=== PATIENT | female | born 1960 | race Caucasian/White ===

== ENCOUNTER → 2016-12-08 | Outpatient (REF) | payer OTHER ==
[2016-12-08 12:52] LABS: ALBUMIN/GLOBULIN RATIO 1.08 (1.00-1.93); ALKALINE PHOSPHATASE 67 U/L (45-117); ALT/SGPT 44 U/L (12-78); ANION GAP 15 MEQ/L (8-16); AST/SGOT 19 U/L (15-37); BLOOD UREA NITROGEN 12 MG/DL (7-18); CALCIUM LEVEL 9.2 MG/DL (8.5-10.1); CARBON DIOXIDE LEVEL 32 MEQ/L (21-32); CHLORIDE LEVEL 93 MEQ/L (98-107); CREATININE FOR GFR 0.91 MG/DL (0.55-1.02); GLOMERULAR FILTRATION RATE > 60.0 (>51); GLUCOSE, FASTING 167 MG/DL (70-105); SODIUM LEVEL 140 MEQ/L (136-145); TOTAL PROTEIN 7.7 GM/DL (6.4-8.2)
== END ==
LOC: M SFHCADAM 08:12
PROVIDERS: ATTEND Physician Assistant
DX: E11.65 Type 2 diabetes mellitus with hyperglycemia (principal)

== ENCOUNTER → 2016-12-22 | Outpatient (REF) | payer OTHER | LOC: M SFHCWAGY 15:56 | PROVIDERS: ATTEND Nurse Practitioner Family | DX: Z11.3 Encounter for screening for infections with a predominantly sexual mode of transmission (principal) ==

== ENCOUNTER → 2016-12-27 | Outpatient (CLI) | payer OTHER ==
--- NOTE | 2016-12-27 11:37 | REP ---
Clinical: Postmenopausal bleeding . Technique: Transabdominal pelvic ultrasound followed by transvaginal examination for better evaluation of the endometrium and adnexa. Findings: Bladder is unremarkable and measures 10.4 x 5.5 x 8.5 cm . Heterogeneous anteverted uterus measures 11.1 x 4.8 x 6.2 cm. The endometrial complex is heterogeneous and thickened measuring up to 16.4 mm thickness. No discrete uterine or endometrial abnormalities are appreciated. Bilateral ovaries are normal in appearance. Right ovary measures 2.7 x 1.7 x 1.4 cm. Left ovary measures 2.8 x 2.5 x 2.2 cm. No pelvic fluid or adnexal mass lesion. . Impression: 1. Heterogeneous thickened endometrium up to 16.4 mm.
== END ==
LOC: M WHC 09:52
PROVIDERS: ATTEND Nurse Practitioner Family
DX: N95.0 Postmenopausal bleeding (principal)

== ENCOUNTER → 2017-01-16 | Outpatient (REF) | payer OTHER | LOC: M SFHCWAGY 11:28 | PROVIDERS: ATTEND Nurse Practitioner Family | DX: N95.0 Postmenopausal bleeding (principal) ==

== ENCOUNTER → 2017-01-16 | Outpatient (CLI) | payer OTHER ==
--- NOTE | 2017-01-16 12:42 | REPMRS ---
Patient History The patient states she had a clinical breast exam in 12/2016. Patient is postmenopausal. No known family history of cancer. Digital Woman Screen Mammo: January 16, 2017 - Exam #: [id number] Bilateral CC and MLO view(s) were taken. Technologist: Carolina Padron Technologist Prior study comparison: January 14, 2016, digital woman screen mammo performed at [facility]. November 20, 2014, digital woman screen mammo performed at [facility]. April 20, 2009, bilateral bilat screen digital mammo performed at [facility]. FINDINGS: There are scattered fibroglandular densities. There has been no change in the appearance of the mammogram from the prior studies. There is a mild amount of scattered fibroglandular density which is fairly symmetric. There is no interval development of dominant mass, architectural distortion, or clustered microcalcification suggestive of malignancy. ASSESSMENT: BI-RADS/ACR category 1 mammogram. Negative. Recommendation Routine screening mammogram in 1 year (for women over age 40). This mammogram was interpreted with the aid of an FDA-approved computer-aided dectection system. Electronically Signed By: Emery Vera MD 01/16/17 [id number]
== END ==
LOC: M WHC 09:58
PROVIDERS: ATTEND Physician Assistant
DX: Z12.31 Encounter for screening mammogram for malignant neoplasm of breast (principal)

== ENCOUNTER → 2017-06-16 | Outpatient (REF) | payer OTHER ==
[2017-06-16 13:15] LABS: MEAN CORPUSCULAR HEMOGLOBIN 34.8 pg (27.0-33.0); MEAN CORPUSCULAR HGB CONC 33.4 g/dl (32.0-36.5); MEAN CORPUSCULAR VOLUME 104.2 fl (80.0-96.0); RED CELL DISTRIBUTION WIDTH 13.8 % (11.5-14.5); WHITE BLOOD COUNT 6.6 K/mm3 (4.0-10.0)
[2017-06-16 13:32] LABS: ALBUMIN 3.9 GM/DL (3.2-5.2); ALBUMIN/GLOBULIN RATIO 1.15 (1.00-1.93); ALKALINE PHOSPHATASE 59 U/L (45-117); ALT/SGPT 39 U/L (12-78); ANION GAP 11 MEQ/L (8-16); AST/SGOT 11 U/L (15-37); BILIRUBIN,TOTAL 0.7 MG/DL (0.2-1.0); BLOOD UREA NITROGEN 15 MG/DL (7-18); CALCIUM LEVEL 9.2 MG/DL (8.5-10.1); CARBON DIOXIDE LEVEL 33 MEQ/L (21-32); CHLORIDE LEVEL 97 MEQ/L (98-107); CHOLESTEROL LEVEL 116 MG/DL (<200); CREATININE FOR GFR 0.97 MG/DL (0.55-1.02); FREE T4 1.05 NG/DL (0.76-1.46); GLOMERULAR FILTRATION RATE > 60.0 (>51); GLUCOSE, FASTING 152 MG/DL (70-105); POTASSIUM SERUM 4.5 MEQ/L (3.5-5.1); SODIUM LEVEL 141 MEQ/L (136-145); TOTAL PROTEIN 7.3 GM/DL (6.4-8.2); TRIGLYCERIDES LEVEL 138 MG/DL (<150)
[2017-06-16 14:24] LABS: VITAMIN B12 LEVEL 297 PG/ML
[2017-06-16 14:34] LABS: FOLATE 11.3 NG/ML
== END ==
LOC: M SFHCADAM 09:32
PROVIDERS: ATTEND Physician Assistant
DX: N93.9 Abnormal uterine and vaginal bleeding, unspecified (principal); I11.9 Hypertensive heart disease without heart failure; E11.65 Type 2 diabetes mellitus with hyperglycemia; D75.89 Other specified diseases of blood and blood-forming organs

== ENCOUNTER → 2017-07-12 | Outpatient (REF) | payer OTHER | LOC: M SFHCWAGY 11:59 | PROVIDERS: ATTEND Nurse Practitioner Family | DX: N85.00 Endometrial hyperplasia, unspecified (principal) ==

== ENCOUNTER → 2017-07-19 | Outpatient (CLI) | payer OTHER ==
--- NOTE | 2017-07-20 08:12 | REP ---
Clinical: Postmenopausal pelvic pain and thickened endometrial complex. Comparison: 12/27/2016. Technique: Transabdominal pelvic ultrasound. Findings: Heterogeneous uterus measures 10.1 x 4.6 x 6.5 cm. The endometrial complex measures 7.1 mm thickness. No discrete uterine/endometrial abnormality is identified. The bilateral ovaries are normal in appearance. Right ovary measures 2.7 x 1.0 x 2.0 cm. Left ovary measures 2.8 x 2.7 x 1.9 cm. Bladder is unremarkable and measures 6.1 x 4.0 x 6.2 cm. No pelvic fluid or adnexal mass lesion. Impression: Heterogeneous uterus and endometrial complex without discrete abnormality identified.
== END ==
LOC: M WHC 08:00
PROVIDERS: ATTEND Nurse Practitioner Family
DX: N85.00 Endometrial hyperplasia, unspecified (principal)

== ENCOUNTER → 2017-09-06 | Outpatient (REF) | payer OTHER | LOC: M SFHCADAM 08:13 | PROVIDERS: ATTEND Physician Assistant | DX: E11.65 Type 2 diabetes mellitus with hyperglycemia (principal) ==

== ENCOUNTER → 2017-12-14 | Outpatient (REF) | payer OTHER ==
[2017-12-19 10:19] LABS: HPV HYBRID CAPTURE II Negative (Negative)
== END ==
LOC: M SFHCWAGY 11:59
DX: Z12.4 Encounter for screening for malignant neoplasm of cervix (principal)

== ENCOUNTER → 2017-12-22 | Outpatient (REF) | payer OTHER ==
[2017-12-22 13:20] LABS: ALBUMIN/GLOBULIN RATIO 1.05 (1.00-1.93); ALKALINE PHOSPHATASE 76 U/L (45-117); ALT/SGPT 31 U/L (12-78); ANION GAP 8 MEQ/L (8-16); AST/SGOT 20 U/L (7-37); BILIRUBIN,TOTAL 0.7 MG/DL (0.2-1.0); BLOOD UREA NITROGEN 11 MG/DL (7-18); CALCIUM LEVEL 9.2 MG/DL (8.5-10.1); CARBON DIOXIDE LEVEL 33 MEQ/L (21-32); CHLORIDE LEVEL 97 MEQ/L (98-107); CREATININE FOR GFR 0.99 MG/DL (0.55-1.30); GLOMERULAR FILTRATION RATE > 60.0 (>51); GLUCOSE, FASTING 113 MG/DL (70-100); SODIUM LEVEL 138 MEQ/L (136-145); TOTAL PROTEIN 7.8 GM/DL (6.4-8.2)
[2017-12-22 14:03] LABS: ESTIMATED AVERAGE GLUCOSE 157 MG/DL (60-110); HEMOGLOBIN A1c 7.1 %
== END ==
LOC: M SFHCADAM 10:30
DX: E11.9 Type 2 diabetes mellitus without complications (principal)

== ENCOUNTER → 2018-03-02 | Outpatient (REF) | payer OTHER ==
[2018-03-02 13:10] LABS: ESTIMATED AVERAGE GLUCOSE 157 MG/DL (60-110); HEMOGLOBIN A1c 7.1 %
[2018-03-02 13:14] LABS: ALBUMIN 3.9 GM/DL (3.2-5.2); ALBUMIN/GLOBULIN RATIO 1.05 (1.00-1.93); ALKALINE PHOSPHATASE 83 U/L (45-117); ALT/SGPT 38 U/L (12-78); ANION GAP 8 MEQ/L (8-16); AST/SGOT 8 U/L (7-37); BILIRUBIN,TOTAL 0.7 MG/DL (0.2-1.0); BLOOD UREA NITROGEN 14 MG/DL (7-18); CALCIUM LEVEL 8.9 MG/DL (8.5-10.1); CARBON DIOXIDE LEVEL 34 MEQ/L (21-32); CHLORIDE LEVEL 99 MEQ/L (98-107); CREATININE FOR GFR 0.95 MG/DL (0.55-1.30); GLOMERULAR FILTRATION RATE > 60.0 (>51); GLUCOSE, FASTING 120 MG/DL (70-100); POTASSIUM SERUM 4.4 MEQ/L (3.5-5.1); SODIUM LEVEL 141 MEQ/L (136-145); TOTAL PROTEIN 7.6 GM/DL (6.4-8.2)
== END ==
LOC: M SFHCADAM 08:15
DX: R60.0 Localized edema (principal); E11.9 Type 2 diabetes mellitus without complications
CPT/HCPCS: 80053

== ENCOUNTER → 2018-07-12 | Outpatient (REF) | payer OTHER ==
[2018-07-12 20:43] LABS: ESTIMATED AVERAGE GLUCOSE 180 MG/DL (60-110); HEMOGLOBIN A1c 7.9 %
[2018-07-12 20:44] LABS: ALBUMIN 4.1 GM/DL (3.2-5.2); ALBUMIN/GLOBULIN RATIO 1.14 (1.00-1.93); ALKALINE PHOSPHATASE 87 U/L (45-117); ALT/SGPT 32 U/L (12-78); ANION GAP 10 MEQ/L (8-16); AST/SGOT 9 U/L (7-37); BILIRUBIN,TOTAL 0.7 MG/DL (0.2-1.0); BLOOD UREA NITROGEN 16 MG/DL (7-18); CALCIUM LEVEL 9.4 MG/DL (8.5-10.1); CARBON DIOXIDE LEVEL 35 MEQ/L (21-32); CHLORIDE LEVEL 94 MEQ/L (98-107); FREE T4 1.11 NG/DL (0.76-1.46); GLOMERULAR FILTRATION RATE 54.3 (>51); GLUCOSE, FASTING 164 MG/DL (70-100); POTASSIUM SERUM 3.8 MEQ/L (3.5-5.1); SODIUM LEVEL 139 MEQ/L (136-145); TOTAL PROTEIN 7.7 GM/DL (6.4-8.2)
== END ==
LOC: M SFHCADAM 16:08
DX: R60.0 Localized edema (principal); E11.9 Type 2 diabetes mellitus without complications; E78.5 Hyperlipidemia, unspecified

== ENCOUNTER → 2018-09-03 | Outpatient (REF) | payer OTHER | LOC: M SFHCADAM 07:51 | DX: E11.9 Type 2 diabetes mellitus without complications (principal); E78.5 Hyperlipidemia, unspecified; Z53.8 Procedure and treatment not carried out for other reasons ==

== ENCOUNTER → 2018-09-11 | Outpatient (REF) | payer OTHER ==
[2018-09-11 20:43] LABS: MAGNESIUM LEVEL 1.8 MG/DL (1.8-2.4)
[2018-09-11 20:47] LABS: ANION GAP 7 MEQ/L (8-16); BLOOD UREA NITROGEN 14 MG/DL (7-18); CALCIUM LEVEL 8.9 MG/DL (8.5-10.1); CARBON DIOXIDE LEVEL 35 MEQ/L (21-32); CHLORIDE LEVEL 94 MEQ/L (98-107); CREATININE FOR GFR 1.12 MG/DL (0.55-1.30); GLOMERULAR FILTRATION RATE 53.2 (>51); GLUCOSE, FASTING 209 MG/DL (70-100); POTASSIUM SERUM 3.6 MEQ/L (3.5-5.1); SODIUM LEVEL 136 MEQ/L (136-145)
[2018-09-11 22:32] LABS: MAU/CREAT RATIO 98.6 MCG/MG (0.0-30.0)
== END ==
LOC: M SFHCADAM 15:38
DX: R60.0 Localized edema (principal)

== ENCOUNTER → 2018-12-11 | Outpatient (REF) | payer OTHER ==
[2018-12-11 13:07] LABS: ALBUMIN 3.9 GM/DL (3.2-5.2); BILIRUBIN,TOTAL 0.9 MG/DL (0.2-1.0); CALCIUM LEVEL 9.3 MG/DL (8.5-10.1); CREATININE FOR GFR 1.4 MG/DL (0.55-1.30); GLOMERULAR FILTRATION RATE 41.1 (>51); POTASSIUM SERUM 3.2 MEQ/L (3.5-5.1); TOTAL PROTEIN 7.7 GM/DL (6.4-8.2)
[2018-12-11 14:03] LABS: CREATININE, URINE 26.3 MG/DL; MALB URINE SIEMENS 12.4 MG/L; MAU/CREAT RATIO 47.1 MCG/MG (0.0-30.0)
[2018-12-11 14:09] LABS: HEMOGLOBIN A1c 9.9 %
== END ==
LOC: M SFHCADAM 11:19
PROVIDERS: ATTEND Physician Assistant
DX: R60.0 Localized edema (principal); E78.5 Hyperlipidemia, unspecified; E11.65 Type 2 diabetes mellitus with hyperglycemia; E11.9 Type 2 diabetes mellitus without complications

== ENCOUNTER → 2018-12-17 | Outpatient (REF) | payer OTHER ==
[2018-12-17 13:00] LABS: CALCIUM LEVEL 9.3 MG/DL (8.5-10.1); CREATININE FOR GFR 1.44 MG/DL (0.55-1.30); GLOMERULAR FILTRATION RATE 39.8 (>51); MAGNESIUM LEVEL 1.2 MG/DL (1.8-2.4); POTASSIUM SERUM 3.2 MEQ/L (3.5-5.1)
== END ==
LOC: M SFHCADAM 09:33
PROVIDERS: ATTEND Physician Assistant
DX: E11.9 Type 2 diabetes mellitus without complications (principal); R60.0 Localized edema

== ENCOUNTER → 2018-12-27 | Outpatient (REF) | payer OTHER ==
[2018-12-27 19:37] LABS: CALCIUM LEVEL 9.5 MG/DL (8.5-10.1); CREATININE FOR GFR 1.37 MG/DL (0.55-1.30); GLOMERULAR FILTRATION RATE 42.2 (>51); MAGNESIUM LEVEL 1.7 MG/DL (1.8-2.4); POTASSIUM SERUM 4.2 MEQ/L (3.5-5.1)
== END ==
LOC: M SFHCADAM 15:25
PROVIDERS: ATTEND Physician Assistant
DX: R60.0 Localized edema (principal); E87.6 Hypokalemia; E83.42 Hypomagnesemia

== ENCOUNTER → 2019-01-30 | Outpatient (REF) | payer OTHER ==
[2019-01-30 21:36] LABS: HEMOGLOBIN A1c 7.8 %
== END ==
LOC: M SFHCADAM 13:22
PROVIDERS: ATTEND Physician Assistant
DX: E11.65 Type 2 diabetes mellitus with hyperglycemia (principal)

== ENCOUNTER → 2019-05-22 | Outpatient (REF) | payer OTHER ==
[2019-05-22 12:36] LABS: BILIRUBIN,TOTAL 0.6 MG/DL (0.2-1.0); CALCIUM LEVEL 9.7 MG/DL (8.5-10.1); CREATININE FOR GFR 1.14 MG/DL (0.55-1.30); GLOMERULAR FILTRATION RATE 52.1 (>51); POTASSIUM SERUM 4.3 MEQ/L (3.5-5.1); TOTAL PROTEIN 7.7 GM/DL (6.4-8.2)
[2019-05-22 13:17] LABS: HEMOGLOBIN A1c 7.1 %
== END ==
LOC: M SFHCADAM 09:11
PROVIDERS: ATTEND Physician Assistant
DX: E11.65 Type 2 diabetes mellitus with hyperglycemia (principal); E83.42 Hypomagnesemia; R60.0 Localized edema

== ENCOUNTER → 2019-08-01 | Outpatient (REF) | payer OTHER ==
[2019-08-01 14:48] LABS: CALCIUM LEVEL 9.6 MG/DL (8.5-10.1); CREATININE FOR GFR 1.64 MG/DL (0.55-1.30); GLOMERULAR FILTRATION RATE 34.1 (>51); MAGNESIUM LEVEL 1.5 MG/DL (1.8-2.4); POTASSIUM SERUM 3.3 MEQ/L (3.5-5.1)
== END ==
LOC: M SFHCADAM 08:53
PROVIDERS: ATTEND Physician Assistant
DX: I87.2 Venous insufficiency (chronic) (peripheral) (principal)

== ENCOUNTER → 2019-08-08 | Outpatient (REF) | payer OTHER ==
[2019-08-08 19:36] LABS: CALCIUM LEVEL 8.9 MG/DL (8.5-10.1); CREATININE FOR GFR 1.31 MG/DL (0.55-1.30); GLOMERULAR FILTRATION RATE 44.2 (>51); MAGNESIUM LEVEL 1.8 MG/DL (1.8-2.4); POTASSIUM SERUM 4.1 MEQ/L (3.5-5.1)
== END ==
LOC: M SFHCADAM 14:59
PROVIDERS: ATTEND Physician Assistant
DX: I87.2 Venous insufficiency (chronic) (peripheral) (principal); E83.42 Hypomagnesemia

== ENCOUNTER → 2019-11-14 | Outpatient (REF) | payer OTHER ==
[2019-11-14 19:42] LABS: HEMATOCRIT 45.5 % (36.0-47.0); HEMOGLOBIN 15.1 g/dl (12.0-15.5); MEAN CORPUSCULAR HEMOGLOBIN 33.3 pg (27.0-33.0); MEAN CORPUSCULAR HGB CONC 33.2 g/dl (32.0-36.5); MEAN CORPUSCULAR VOLUME 100.4 fl (80.0-96.0); PLATELET COUNT, AUTOMATED 323 10^3/uL (150-450); RED BLOOD COUNT 4.53 10^6/uL (4.00-5.40); WHITE BLOOD COUNT 10.7 10^3/uL (4.0-10.0)
[2019-11-14 20:01] LABS: ALBUMIN 4.6 GM/DL (3.2-5.2); BILIRUBIN,TOTAL 0.6 MG/DL (0.2-1.0); CALCIUM LEVEL 10.7 MG/DL (8.5-10.1); CREATININE FOR GFR 1.38 MG/DL (0.55-1.30); GLOMERULAR FILTRATION RATE 41.7 (>51); POTASSIUM SERUM 3.4 MEQ/L (3.5-5.1); TOTAL PROTEIN 8.6 GM/DL (6.4-8.2)
[2019-11-14 20:07] LABS: HEMOGLOBIN A1c 6.9 %
== END ==
LOC: M LABDRWAD 19:14
PROVIDERS: ATTEND Physician Assistant
DX: J44.9 Chronic obstructive pulmonary disease, unspecified (principal); E11.9 Type 2 diabetes mellitus without complications; E83.42 Hypomagnesemia

== ENCOUNTER → 2019-11-14 | Outpatient (REF) | payer OTHER | LOC: M SFHCADAM 16:07 | PROVIDERS: ATTEND Physician Assistant | DX: J44.9 Chronic obstructive pulmonary disease, unspecified (principal); R60.0 Localized edema; E11.9 Type 2 diabetes mellitus without complications; E83.42 Hypomagnesemia ==

== ENCOUNTER → 2020-05-06 | Outpatient (REF) | payer OTHER ==
[2020-07-04 16:07] LABS: ALBUMIN 4.4 GM/DL (3.2-5.2); BILIRUBIN,TOTAL 0.6 MG/DL (0.2-1.0); CALCIUM LEVEL 9.3 MG/DL (8.5-10.1); CREATININE FOR GFR 1.93 MG/DL (0.55-1.30); GLOMERULAR FILTRATION RATE 28.3 (>51); HEMOGLOBIN A1c 6.2 %; POTASSIUM SERUM 3.3 MEQ/L (3.5-5.1); TOTAL PROTEIN 8.1 GM/DL (6.4-8.2)
== END ==
LOC: M SFHCADAM 08:31
PROVIDERS: ATTEND Physician Assistant
DX: E11.9 Type 2 diabetes mellitus without complications (principal); I11.9 Hypertensive heart disease without heart failure

== ENCOUNTER → 2020-08-20 | Outpatient (REF) | payer OTHER ==
[2020-08-20 16:39] LABS: HEMATOCRIT 44.2 % (36.0-47.0); HEMOGLOBIN 14.7 g/dl (12.0-15.5); MEAN CORPUSCULAR HEMOGLOBIN 33.7 pg (27.0-33.0); MEAN CORPUSCULAR HGB CONC 33.3 g/dl (32.0-36.5); MEAN CORPUSCULAR VOLUME 101.4 fl (80.0-96.0); PLATELET COUNT, AUTOMATED 370 10^3/uL (150-450); RED BLOOD COUNT 4.36 10^6/uL (4.00-5.40); WHITE BLOOD COUNT 9.1 10^3/uL (4.0-10.0)
[2020-08-20 17:07] LABS: ALBUMIN 4.2 GM/DL (3.2-5.2); ALT/SGPT 25 U/L (12-78); BILIRUBIN,TOTAL 0.6 MG/DL (0.2-1.0); BLOOD UREA NITROGEN 16 MG/DL (7-18); CALCIUM LEVEL 9.2 MG/DL (8.8-10.2); CARBON DIOXIDE LEVEL 36 MEQ/L (21-32); CHLORIDE LEVEL 88 MEQ/L (98-107); CK-MB VALUE MASS < 1.0 NG/ML (<3.6); CPK CREATINE PHOSPHOKINASE 98 U/L (26-192); CREATININE FOR GFR 1.74 MG/DL (0.55-1.30); FREE T4 1.36 NG/DL (0.76-1.46); GLOMERULAR FILTRATION RATE 31.8 (>45); GLUCOSE, FASTING 117 MG/DL (70-100); MAGNESIUM LEVEL 1.5 MG/DL (1.8-2.4); MB/CK RELATIVE INDEX 1.02 (< OR =4); POTASSIUM SERUM 3.3 MEQ/L (3.5-5.1); SODIUM LEVEL 133 MEQ/L (136-145); THYROID STIMULATING HORMONE 0.824 uIU/ML (0.358-3.740); TOTAL PROTEIN 8.2 GM/DL (6.4-8.2); TROPONIN I < 0.02 NG/ML (< 0.10)
[2020-08-20 20:18] LABS: HEMOGLOBIN A1c 6.1 %
== END ==
LOC: M SFHCADAM 14:24
PROVIDERS: ATTEND Physician Assistant
DX: R00.0 Tachycardia, unspecified (principal)

== ENCOUNTER → 2020-09-30 | Outpatient (CLI) | payer OTHER | LOC: M LABSMTC 10:49 | PROVIDERS: ATTEND Pediatrics | DX: Z20.828 Contact with and (suspected) exposure to other viral communicable diseases (principal) ==

== ENCOUNTER → 2020-11-10 | Outpatient (REF) | payer OTHER ==
[2020-11-10 16:58] LABS: ALBUMIN 4.2 GM/DL (3.2-5.2); BILIRUBIN,TOTAL 0.3 MG/DL (0.2-1.0); CALCIUM LEVEL 9.4 MG/DL (8.8-10.2); CREATININE FOR GFR 1.82 MG/DL (0.55-1.30); GLOMERULAR FILTRATION RATE 30.2 (>45); MAGNESIUM LEVEL 2.1 MG/DL (1.8-2.4); POTASSIUM SERUM 4.3 MEQ/L (3.5-5.1); TOTAL PROTEIN 8.1 GM/DL (6.4-8.2)
== END ==
LOC: M SFHCADAM 11:50
PROVIDERS: ATTEND Physician Assistant
DX: E11.21 Type 2 diabetes mellitus with diabetic nephropathy (principal); N18.32 Chronic kidney disease, stage 3b; R00.0 Tachycardia, unspecified; E87.5 Hyperkalemia

== ENCOUNTER → 2020-12-01 | Outpatient (REF) | payer OTHER ==
[2020-12-01 13:37] LABS: CALCIUM LEVEL 9.5 MG/DL (8.8-10.2); CREATININE FOR GFR 1.58 MG/DL (0.55-1.30); GLOMERULAR FILTRATION RATE 35.5 (>45); POTASSIUM SERUM 4.1 MEQ/L (3.5-5.1)
== END ==
LOC: M SFHCADAM 08:46
PROVIDERS: ATTEND Physician Assistant
DX: R60.0 Localized edema (principal); N18.32 Chronic kidney disease, stage 3b

== ENCOUNTER → 2021-01-29 | Outpatient (REF) | payer OTHER | LOC: M LAB REF 16:46 | PROVIDERS: ATTEND Internal Medicine Nephrology | DX: I50.32 Chronic diastolic (congestive) heart failure (principal) ==

== ENCOUNTER → 2021-02-10 | Outpatient (CLI) | payer OTHER ==
--- NOTE | 2021-02-12 01:47 | REP ---
INDICATION: CHRONIC CKD III B COMPARISON: None TECHNIQUE: Real time jain scale ultrasound examination using curved array transducer. FINDINGS: Bilateral kidneys are normal in contour, size, echogenicity, and reniform shape with increased central sinus fat suggesting chronic age-related renal disease. No hydronephrosis, nephrolithiasis, cystic or renal mass lesion. No perinephric fluid collection. Bladder is under distended. Right kidney measures 11.5 x 5.5 x 4.6 cm. Left kidney measures 9.5 x 6.2 x 5.0 cm. IMPRESSION: 1. Evidence for chronic medical renal disease. <Electronically signed by Margarito Scott > 02/12/21 0143
== END ==
LOC: M RAD 11:34
PROVIDERS: ATTEND Internal Medicine Nephrology
DX: N18.32 Chronic kidney disease, stage 3b (principal)

== ENCOUNTER → 2021-03-12 | Outpatient (REF) | payer OTHER ==
[2021-03-12 17:41] LABS: BACTERIA, URINE AUTO 1+ (NEGATIVE); RBC, URINE AUTO 0 /HPF (0-3); SQUAMOUS EPITHELIAL CELL UR AU 1 /HPF (0-6); WBC, URINE AUTO 1 /HPF (0-3)
== END ==
LOC: M LAB REF 16:52
PROVIDERS: ATTEND Internal Medicine Nephrology
DX: N18.32 Chronic kidney disease, stage 3b (principal)

== ENCOUNTER → 2021-04-16 | Outpatient (REF) | payer OTHER ==
[2021-04-16 16:09] LABS: HEMOGLOBIN A1c 6.4 %
== END ==
LOC: M SFHCADAM 12:10
PROVIDERS: ATTEND Physician Assistant
DX: E11.21 Type 2 diabetes mellitus with diabetic nephropathy (principal)

== ENCOUNTER 2021-07-28 13:58 | Inpatient (IN) | payer OTHER ==
[~2021-07-28] VITALS: Ht 162.6 cm; Wt 116.2 kg
[2021-07-28] MEDS ORDERED: FURO80TA2 PO (14:08)
[2021-07-28] MEDS ORDERED: SPIR50TA4 PO (14:08)
[2021-07-28] MEDS ORDERED: ATOR40TA75 PO (14:08)
[2021-07-28] MEDS ORDERED: TRAD5TAB PO (14:08)
[2021-07-28] MEDS ORDERED: ASPI81CH33 PO (14:08)
[2021-07-28 18:16] LABS: BASO % 0.1 % (0.0-1.0); HEMATOCRIT 39.5 % (36.0-47.0); HEMOGLOBIN 13.2 g/dl (12.0-15.5); LYMPH # 0.8 10^3/uL (1.5-5.0); LYMPH % 5.6 % (24.0-44.0); MEAN CORPUSCULAR HEMOGLOBIN 32.2 pg (27.0-33.0); MEAN CORPUSCULAR HGB CONC 33.4 g/dl (32.0-36.5); MEAN CORPUSCULAR VOLUME 96.3 fl (80.0-96.0); MONO # 0.5 10^3/uL (0.0-0.8); MONO % 3.1 % (2.0-8.0); NEUTROPHILS # 13.3 10^3/uL (1.5-8.5); NEUTROPHILS % 89.2 % (36.0-66.0); PLATELET COUNT, AUTOMATED 298 10^3/uL (150-450); WHITE BLOOD COUNT 14.9 10^3/uL (4.0-10.0)
[2021-07-28 18:17] LABS: RSV AMPLIFICATION NEGATIVE (NEGATIVE)
[2021-07-28 18:41] LABS: ALBUMIN 2.5 GM/DL (3.2-5.2); ALT/SGPT 505 U/L (12-78); BILIRUBIN,DIRECT 1.9 MG/DL (0.0-0.2); BILIRUBIN,TOTAL 2.5 MG/DL (0.2-1.0); BLOOD UREA NITROGEN 116 MG/DL (7-18); CALCIUM LEVEL 8.8 MG/DL (8.8-10.2); CARBON DIOXIDE LEVEL 26 MEQ/L (21-32); CHLORIDE LEVEL 93 MEQ/L (98-107); CREATININE FOR GFR 3.94 MG/DL (0.55-1.30); GLOMERULAR FILTRATION RATE 12.3 (>45); GLUCOSE, FASTING 183 MG/DL (70-100); POTASSIUM SERUM 4.1 MEQ/L (3.5-5.1); SODIUM LEVEL 132 MEQ/L (136-145); TOTAL PROTEIN 7.6 GM/DL (6.4-8.2)
--- NOTE | 2021-07-28 18:44 | REP ---
INDICATION: R/O DVT COMPARISON: None. TECHNIQUE: Real time compression and duplex Doppler interrogation of the right lower extremity deep venous system is performed. The patient declined imaging of the left common femoral vein.The right peroneal and posterior tibial veins are not visualized due to body habitus. FINDINGS: The right common femoral, superficial femoral and popliteal veins are fully compressible with transducer pressure and demonstrate normal spontaneous and phasic flow, without evidence of deep venous thrombosis. IMPRESSION: No evidence of deep venous thrombosis of the right lower extremity femoral popliteal venous system. <Electronically signed by Titi Lynn > 07/28/21 [id number]
[2021-07-28] MEDS ORDERED: SODIUM CHLORIDE 0.9% 1000ML IV STA (19:34)
[2021-07-28] MEDS ORDERED: GLUCOSE 4GM CHEW TABLET PO PRN (19:35)
[2021-07-28] MEDS ORDERED: GLUCAGON INJ 1MG VIAL SC PRN (19:35)
[2021-07-28] MEDS ORDERED: MEROPENEM INJ 2 GM in NS 100 ML IV SCH (19:35)
[2021-07-28] MEDS ORDERED: MOM 30ML SUSPENSION UDC PO PRN (19:35)
[2021-07-28] MEDS ORDERED: MAALOX 30 ML SUSP *UDC PO PRN (19:35)
[2021-07-28] MEDS ORDERED: HOME MED LIST COMPLETE! XX SCH (19:50)
[2021-07-28] MEDS ORDERED: VANCOMYCIN HCL 1,000 MG, VIAL MATE ADAPTER 1 EACH in NS 250 ML IV SCH (20:05)
[2021-07-28 20:32] LABS: INR 1.26; PROTHROMBIN TIME 16.3 SECONDS (12.7-14.5)
[2021-07-28 20:33] LABS: PARTIAL THROMBOPLASTIN TIME 28.3 SECONDS (25.9-37.0)
--- NOTE | 2021-07-28 20:41 | REPVR ---
PROCEDURE INFORMATION: Exam: US Abdomen, Limited; Right Upper Quadrant Exam date and time: 07/28/2021 8:15 PM Age: 61 years old Clinical indication: Abnormal findings; Abnormal lab test; Elevated liver enzymes; Additional info: Elevated creatine and lfts TECHNIQUE: Imaging protocol: US abdomen. Real time ultrasound with image documentation. Limited exam focused on the right upper quadrant. COMPARISON: RENAL US 02/10/2021 11:45 AM FINDINGS: Liver: Mildly enlarged. Gallbladder: Surgically absent. Common bile duct: No stones. No ductal dilatation. Pancreas: Suboptimally visualized. Right kidney: Mildly echogenic, suggesting medical renal disease. No mass. No definite stones. No hydronephrosis. Intraperitoneal space: No free fluid. IMPRESSION: 1. Mild hepatomegaly. 2. Mildly echogenic right kidney, suggesting medical renal disease. Electronically signed by: Joshua Asencio On 07/28/2021 20:41:01 PM
--- NOTE | 2021-07-28 20:58 | HPEPDOC ---
[facility] Medical History & Physical Date of Admission Jul 28, 2021 Date of Service: Jul 28, 2021 Primary Care Physician: KAT LIM PA-C Attending Physician: IVORY EBRRIOS MD History and Physical TIME OF SERVICE: 9:11PM CHIEF COMPLAINT: leg pain HISTORY OF PRESENT ILLNESS: Ms. Sanderson is a 61 yr old who presented w c/o right leg redness, 9/10 in severity pain and worsening swelling for about 1 week; because of the pain she has been having difficulties walking. She denies having f/c/ or vomiting. REVIEW OF SYSTEMS: 10-point review of systems negative except as listed in HPI PAST MEDICAL/ SURGICAL HISTORY: CKD3, Chronic HFpEF, DLP, essential HTN, NIDDM, MIRIAM (declined formal sleep study), Plaque psoriasis, GERD, Depression, class 3 obesity, cholecystectomy, tonsillectomy, hernia repair FAMILY HISTORY: Father PR / Mother PR SOCIAL HISTORY: She smokes, doesnt drink alcohol or use recreational drugs ALLERGIES: Please see below. HOME MEDICATIONS: Please see below. PHYSICAL EXAMINATION: Vital Signs Date Time Temp Pulse Resp B/P (MAP) Pulse Ox O2 Delivery O2 Flow Rate FiO2 07/28/21 14:00 97.6 100 20 122/56 (78) 98 Room Air GENERAL APPEARANCE: well-nourished and developed/ Pickwickian habitus HEENT: EOMI / MMM&P / neck short CARDIOVASCULAR: tachycardic/NMRG LUNGS: CTAB on RA ABDOMEN: contour obese MUSCULOSKELETAL: NCAT INTEGUMENT: she is not flushed or diaphoretic / + rubor, dalor and calor of skin at right lower leg / statis dermatitis changes at left lower leg NEUROLOGICAL: CN 2-12 grossly intact / speech not dysarthric PSYCHIATRIC: A&O / able to understand and follow all commands LABORATORY DATA: IMAGING: RLE US IMPRESSION: No evidence of deep venous thrombosis of the right lower extremity femoral popliteal venous system. Abdominal US IMPRESSION: 1. Mild hepatomegaly. 2. Mildly echogenic right kidney, suggesting medical renal disease. MICROBIOLOGY: Respiratory panel negative ASSESSMENT: is a 61 yr old w a hx of CKD3, HFpEF, DLP, HTN, NIDDM, psoriasis, GERD, Depression, & obesity who is admitted for RLE cellulitis and JESSIE on CKD3. PLAN: 1 Sepsis 2/2 RLE cellulitis - Her predisposing conditions include edema, obesity & probable venous insufficiency - She has tachycardia and leucocytosis -ALT-70 Score to diagnose LE Cellulitis = 5 points Plan: fall precautions / elevate leg / Meropenem (renally adjusted dose) and Vancomycin pending MRSA, lactic acid and blood cx results / IVF once we get access (asked to place a central line bc ER staff were unable to get a line) / Acetaminophen PRN for fever / target MAP at of least 65 to 70 / f/u Is and Os with target UOP of at least 0.5 ml/kg/H / f/u FSBS Q6H w target serum glucose 140-180 while acutely ill 2 JESSIE on CKD3 The JESSIE is likely due to due to Lasix and spironolactone use i/s/o acute illness Plan: monitor UOP / IVF / f/u CK, Ulytes PTH, Phosphorus / hold Lasix and spironolactone 3 Transaminitis likely 2/2 fatty liver Plan: can f/u w PCP to discuss lifestyle recommendations (diet / exercise to assist with losing 3-5% of BW), IR consult for biopsy to confirm diagnosis, GI consult to discuss if she is a candidate for pioglitazone & Vitamin on an out patient basis / she is already on a statin (to reduce risk of CVD which is most common cause of in patients with NAFLD) 4 Chronic HFpEF Plan: f/u Is and Os and daily weights while diuretics are on hold 5 essential HTN BP is 113/74 this evening Plan: hold diuretics / day time team may consider starting PRN hydralazine 6 DLP Plan: c/w statin 7 NIDDM Plan: diabetic diet / f/u accuchecks / hypoglycemia protocol / sliding scale insulin / hold oral anti-glycemic / f/u A1C (target A1C is <7 to 6.5% ) 8 Tobacco abuse Plan: smoking cessation education 9 Class 3 obesity -complicates care - since the patients BMI > 40 s/he is a candidate for bariatric surgery -she has MIRIAM but declined a formal sleep study Plan: the patient can f/u w her PCP for auto mechanic consult, to discuss staring Saxenda, which is indicated in patients with a BMI >27 with co-existing DM, HTN or dyslipidemia to help with weight control as an adjunct to exercise & referral to a Bariatric Surgeon DVT px w heparin Disposition: home after more than 2 midnights stay Home Medications Scheduled Aspirin (Aspirin) 81 Mg Tab.chew, 81 MG PO DAILY Atorvastatin Calcium (Atorvastatin Calcium) 40 Mg Tablet, 40 MG PO QHS Furosemide (Furosemide) 80 Mg Tablet, 80 MG PO DAILY Linagliptin (Tradjenta) 5 Mg Tablet, 5 MG PO DAILY Spironolactone (Spironolactone) 50 Mg Tablet, 50 MG PO DAILY Allergies Coded Allergies: amoxicillin (Verified Allergy, Unknown, 07/28/21) clindamycin (Verified Allergy, Unknown, 07/28/21) esomeprazole (Verified Allergy, Unknown, 07/28/21) lansoprazole (Verified Allergy, Unknown, 07/28/21) methylprednisolone (Verified Allergy, Unknown, 07/28/21) metronidazole (Verified Allergy, Unknown, 07/28/21) A-FIB/CHADSVASC A-FIB History Current/History of A-Fib/PAF?: No Current PO Anticoag Therapy: No IVORY BERRIOS MD Jul 28, 2021 20:58
[2021-07-28 21:00] LABS: CPK CREATINE PHOSPHOKINASE 38 U/L (26-192); HEPATITIS B CORE ANTIBODY IGM NEGATIVE (NEGATIVE); HEPATITIS B SURFACE ANTIBODY NEGATIVE (POSITIVE); HEPATITIS B SURFACE ANTIGEN NEGATIVE (NEGATIVE); HEPATITIS C VIRUS ABY INDEX < 0.0 INDEX (<0.8); MAGNESIUM LEVEL 2.7 MG/DL (1.8-2.4); URIC ACID 18.2 MG/DL (2.6-6.0)
[2021-07-28] MEDS ORDERED: VANCOMYCIN HCL 1,000 MG, VIAL MATE ADAPTER 1 EACH in NS 250 ML IV ONE (21:00)
[2021-07-28] MEDS ORDERED: VANCOMYCIN HCL 500 MG in D5W MINI-BAG PLUS 100 ML IV ONE (22:00)
[2021-07-28] MEDS ORDERED: HEPARIN SOD (PORCINE) 5000UNITS/ML 1ML VIAL/SYRINGE SC SCH (22:00)
[2021-07-28] MEDS ORDERED: VANCOMYCIN INTERMITTENT/PULSE DOSING BY CLINICAL PHARMACIST PER DOSING PROTOCOL XX SCH (22:30)
[2021-07-29 00:25] LABS: PHOSPHORUS LEVEL 7.2 MG/DL (2.5-4.9)
--- NOTE | 2021-07-29 00:34 | REPVR ---
PROCEDURE INFORMATION: Exam: XR Chest Exam date and time: 07/28/2021 11:22 PM Age: 61 years old Clinical indication: Other: Central line; Additional info: Central line placement TECHNIQUE: Imaging protocol: XR of the chest. Views: 1 view. COMPARISON: No relevant prior studies available. FINDINGS: Tubes, catheters and devices: Right subclavian central line to the mid superior vena cava. Lungs: Minimal left infrahilar infiltrate or atelectasis. Pleural spaces: Minimal left pleural effusion is suggested. No pneumothorax. Heart/Mediastinum: Mild cardiomegaly. Bones/joints: Unremarkable. Soft tissues: There are moderately generous overlying soft tissues. IMPRESSION: 1. Right subclavian central line to the mid superior vena cava. No pneumothorax. 2. Mild cardiomegaly. 3. Minimal left pleural effusion and question of minimal left infrahilar infiltrate or atelectasis. Electronically signed by: Chago Collier On 07/29/2021 00:33:19 AM
[2021-07-29] MEDS ORDERED: LR 1,000 ML IV SCH (01:40)
[2021-07-29] MEDS: MEROPENEM INJ 1 GM in IV 1 EA IV SCH ×2 (01:59→15:07)
[2021-07-29] MEDS: HumaLOG INSULIN (NovoLOG) PER UNIT SC SCH ×4 (02:39→16:54)
[2021-07-29] MEDS: ATORVASTATIN 20 MG TAB PO SCH ×2 (02:51→22:04)
[2021-07-29] MEDS ORDERED: METOPROLOL 5 MG/5 ML VIAL IV STA (03:17)
--- NOTE | 2021-07-29 03:18 | IPNPDOC ---
Text Note Date of Service The patient was seen on 07/29/21. NOTE # New on set Afib ? LATE ENTRY 318AM I was informed by YAIR Rose that the patient is tachycardic w a rate in the 160s and the patient appears to be in A fib.. We will order a stat EKG & ask her to bare down, if her tachycardia doesn't resolve we will give her IV metoprolol. Late entry 340AM Per d/w YAIR Rose vagal maneuvers and bearing down didn't resolve the tachycardia. Despite the metoprolol her HR remained in the 130s. ECG showed AFib. She has multiple risk factors for Afib including obesity and HTN. Her [id number] score is 4 points therefore we will switch from pro phylactic dose heparin to treatment dose, order additional doses of Metoprolol, f/u serial Trops to r/o [place], check, TSH & an Echo to r/o rheumatic mitral or aortic valvulopathy. VS,Fishbone, I+O VS, Fishbone, I+O Laboratory Tests 07/28/21 16:53 07/28/21 17:16 Vital Signs Date Time Temp Pulse Resp B/P (MAP) Pulse Ox O2 Delivery O2 Flow Rate FiO2 07/29/21 03:06 157 18 139/61 (87) 97 07/29/21 00:53 98.7 Room Air IVORY BERRIOS MD Jul 29, 2021 03:18
[2021-07-29] MEDS ORDERED: HEPARIN SOD (PORCINE) 5000UNITS/ML 1ML VIAL/SYRINGE IV ONE (04:00)
[2021-07-29] MEDS ORDERED: HEPARIN SOD (PORCINE) 5000UNITS/ML 1ML VIAL/SYRINGE IV PRN (04:00)
[2021-07-29] MEDS ORDERED: HEPARIN DRIP 25,000 UNITS in IV 1 EA IV SCH (04:00)
[2021-07-29] MEDS: METOPROLOL 5 MG/5 ML VIAL IV PRN ×2 (04:19→04:42)
[2021-07-29 05:09] LABS: HEMATOCRIT 35.4 % (36.0-47.0); HEMOGLOBIN 11.4 g/dl (12.0-15.5); MEAN CORPUSCULAR HEMOGLOBIN 31.9 pg (27.0-33.0); MEAN CORPUSCULAR HGB CONC 32.2 g/dl (32.0-36.5); MEAN CORPUSCULAR VOLUME 99.2 fl (80.0-96.0); PLATELET COUNT, AUTOMATED 277 10^3/uL (150-450); RED BLOOD COUNT 3.57 10^6/uL (4.00-5.40); WHITE BLOOD COUNT 14.1 10^3/uL (4.0-10.0)
[2021-07-29 05:38] LABS: BILIRUBIN,TOTAL 2.2 MG/DL (0.2-1.0); CALCIUM LEVEL 8.3 MG/DL (8.8-10.2); CREATININE FOR GFR 3.69 MG/DL (0.55-1.30); GLOMERULAR FILTRATION RATE 13.3 (>45); MAGNESIUM LEVEL 2.5 MG/DL (1.8-2.4); POTASSIUM SERUM 4.3 MEQ/L (3.5-5.1); THYROID STIMULATING HORMONE 1.42 uIU/ML (0.358-3.740); TOTAL PROTEIN 6.4 GM/DL (6.4-8.2); TROPONIN I 0.03 NG/ML (< 0.10)
[2021-07-29] MEDS ORDERED: METOPROLOL TART 50 MG TAB PO SCH (06:05)
[2021-07-29 07:22] LABS: HEMATOCRIT 35.4 % (36.0-47.0); HEMOGLOBIN 11.7 g/dl (12.0-15.5); MEAN CORPUSCULAR HEMOGLOBIN 32.4 pg (27.0-33.0); MEAN CORPUSCULAR HGB CONC 33.1 g/dl (32.0-36.5); MEAN CORPUSCULAR VOLUME 98.1 fl (80.0-96.0); PLATELET COUNT, AUTOMATED 277 10^3/uL (150-450); RED BLOOD COUNT 3.61 10^6/uL (4.00-5.40); WHITE BLOOD COUNT 16.5 10^3/uL (4.0-10.0)
--- NOTE | 2021-07-29 07:40 | ROOPDOC ---
[facility] [place] Report Of Operation Report of Operation DATE OF PROCEDURE: 07/28/21 PREPROCEDURE DIAGNOSES: Sepsis, lack of peripheral IV access. POSTPROCEDURE DIAGNOSES: Sepsis, lack of peripheral IV access. PROCEDURE PERFORMED: Insertion of right subclavian triple-lumen central venous catheter. SURGEON: Jamie Eng MD ANESTHESIA: Local anesthesia (1% lidocaine which was containing the kit). ESTIMATED BLOOD LOSS: Approximately 5 mL. COMPLICATIONS: None. Postprocedure chest x-ray was checked for positioning as well as for pneumothorax which was ruled out. DESCRIPTION OF PROCEDURE: Consent was obtained from the patient after full discussion of the risks and benefits including risks for vascular injury and lung injury causing pneumothorax with possible placement of a chest tube. She remained in the room, positioned supine on the stretcher. Prior to draping her, using ultrasound to look at the internal jugular veins. This seems to be small and slightly fl attened out. We used a line bundle kit. Her right-sided neck and chest are then prepped and draped in the usual sterile fashion. We then ultrasound I first tried a direct approach to the right internal jugular vein. After locating the vein the finder needle was threaded through the vein but I must have passed through and I was getting a mix of venous and arterial blood. I tried to reposition it but lost the access. There is a small amount of hematoma that developed obscuring the view to the internal jugular vein so I decided to go to the right subclavian. She was placed on a Trendelenburg position. Using an infraclavicular approach, the subclavian vein was cannulated. It took 3 tries. The location seems slightly deeper. The guidewire was threaded through easily. The tract was enlarged with a fascial dilator and the guidewire exchanged with a triple-lumen catheter at 17 cm at the skin level using a modified Seldinger technique. All 3 ports were aspirated and flushed and noted to be working well. The catheter was secured to the skin and a chlorhexidine-containing nonocclusive dressing was placed to cover the exit site. Patient tolerated the procedure well. A postoperative chest x-ray was performed and I evaluated that noting good positioning as well as absence of any lung injury. JAMIE ENG MD Jul 29, 2021 07:40
[2021-07-29] MEDS ORDERED: NS 1,000 ML IV SCH (08:00)
[2021-07-29 08:36] LABS: ALBUMIN 2.1 GM/DL (3.2-5.2); BILIRUBIN,TOTAL 2.3 MG/DL (0.2-1.0); CALCIUM LEVEL 8.6 MG/DL (8.8-10.2); CREATININE FOR GFR 3.88 MG/DL (0.55-1.30); GLOMERULAR FILTRATION RATE 12.6 (>45); MAGNESIUM LEVEL 2.8 MG/DL (1.8-2.4); POTASSIUM SERUM 4.6 MEQ/L (3.5-5.1); TOTAL PROTEIN 6.8 GM/DL (6.4-8.2); VANCOMYCIN RANDOM 21.4 UG/ML
--- NOTE | 2021-07-29 08:45 | REP ---
INDICATION: ACUTE ON CKD. COMPARISON: 02/10/2021. TECHNIQUE: Real-time sonographic evaluation of the kidneys is performed. FINDINGS: Cortical echotexture is increased suggesting medical renal disease. There is no evidence of hydronephrosis, cyst, mass, or calculus in either kidney. The right kidney measures 9.6 x 4.5 x 4.6 cm. Left renal dimensions are 8.9 x 5.7 x 6.1 cm. The urinary bladder is empty. IMPRESSION: No hydronephrosis. Increased cortical echotexture suggesting medical renal disease. <Electronically signed by Titi Lynn > 07/29/21 [id number]
[2021-07-29] MEDS: APIXABAN 2.5 MG TAB (ELIQUIS) PO SCH ×2 (09:00→22:04)
[2021-07-29] MEDS ORDERED: ASPIRIN 81 MG CHEW TABLET PO SCH (09:00)
[2021-07-29] MEDS ORDERED: diltiaZEM 125 MG in NS 100 ML IV SCH (10:00)
[2021-07-29 10:09] LABS: PTH INTACT 1272.9 PG/ML (18.5-88.0)
[2021-07-29] MEDS: DEXTROSE 50% 50 ML SYRINGE IV PRN ×4 (10:30→20:30)
[2021-07-29] MEDS ORDERED: AMIODARONE 150MG/3ML INJ (J0282) IVP STA (10:38)
[2021-07-29] MEDS ORDERED: NS 1,000 ML IV STA (10:38)
[2021-07-29 10:40] VITALS: BP 92/72
[2021-07-29] MEDS ORDERED: AMIODARONE HCL 150 MG in IV 1 EA IV ONE (11:00)
[2021-07-29] MEDS ORDERED: NOREPINEPHRINE BITARTRATE 16 MG in D5W 484 ML IV SCH ×2 (11:25→23:46)
--- NOTE | 2021-07-29 13:47 | IPN ---
PROGRESS NOTE DATE: 07/29/2021 SUBJECTIVE: Patient was seen and examined at the bedside. Chart has been reviewed. Patient reports some shortness of breath and palpitations, found to have afib with RVR, ventricular rate of 135-145 at the bedside, blood pressure is 68. No fever or chills overnight. OBJECTIVE: Vital signs: Temperature 96.4, pulse 110 irregularly irregular, respiratory rate 26, blood pressure 102/56, previous blood pressure 66/45, 97% on room air. General: Awake, alert, oriented person, place and time, answering questions appropriate, mild distress with 6-7 word conversational dyspnea. HEENT: Dry mucous membranes. Neck: No JVD, no thyromegaly, no cervical lymphadenopathy. Lungs: Diminished bilaterally. Heart: S1 and S2 irregularly irregular, tachycardic. Abdomen: Obese, soft, nontender, nondistended, positive bowel sounds. Extremities: Chronic lower extremity venous stasis dermatitis, 3+ pitting edema and lymphedema. LABORATORY DATA: White count 16.5, hemoglobin 11, hematocrit 35, platelet count 277. Creatinine 3.88, magnesium 2.8. Total bilirubin 2.3, AST 607, ALT 574, alkaline phosphatase 272. BNP 31,258. TSH 1.4. Two sets of blood cultures negative. IMAGING STUDIES: Renal ultrasound: No hydronephrosis, medical renal disease. Chest x-ray 07/28/2021: Right subclavian central line to the mid superior vena cava, mild cardiomegaly, minimal left effusion, minimal left infrahilar infiltrate or atelectasis. ASSESSMENT: This 61-year-old with morbid obesity - BMI of 44 admitted on 07/28/2021 with history of chronic kidney disease stage 3, baseline creatinine 1.9, heart failure with preserved systolic function, dyslipidemia, hypertension, diabetes, obstructive sleep apnea declined sleep study, plaque psoriasis, reflux, depression, class 3 obesity presented with difficulty ambulation without fever or chills or nausea and swelling of about 1 week and worsening right lower extremity edema. Patient was admitted for sepsis due to right lower extremity cellulitis with acute on chronic renal failure, fatty liver with transaminitis and hypotension. Patient had a central line placed yesterday. I.V. antibiotics with meropenem and vancomycin were started. Patient continued to have severe hypotension requiring Levophed drip and had new onset atrial fibrillation with rapid ventricular rate of 130-140 at the bedside, given a heparin drip overnight currently on Eliquis. IMPRESSIONS/PLAN: 1. Septic shock: Requiring Levophed drip. Currently on broad spectrum antibiotics with renally dosed meropenem and vancomycin. Blood cultures are still pending. Source of infection appears to be the right lower extremity. Triple lumen placed by general surgery yesterday. Status post I.V. fluids, but now with worsening edema therefore I.V. fluids have been discontinued and patient has been placed on a Levophed drip to keep mean arterial pressure of 70-75. 2. Acute on chronic renal failure: Baseline creatinine is 1.9, current creatinine is 3.94. Bowl Turner has been consulted and recommended stopping the I.V. fluids due to worsening lower extremity edema. Venous Dopplers of the lower extremities were negative for DVT. Nephrology has been consulted. On strict I&Os, daily weights and antibiotics have been renally dosed; pharmacy consulted for vancomycin. 3. Right lower extremity cellulitis: On I.V. vanco and meropenem. 4. Septic shock: With Levophed drip. I.V. fluids discontinued due to worsening edema in the lower extremities. 5. Congestive heart failure with preserved systolic function: I.V. fluids have been discontinued. Management and diuresis per nephrology. Nephrology recommended stopping the I.V. fluids and will diurese later today if blood pressure permits. 6. Hypertension: Currently with low blood pressure. BP meds have been held. 7. Dyslipidemia: Chronic. 8. Non-insulin dependent type-2 diabetes: On consistent carbohydrate diet, sliding scale and fingersticks every before meals and at bedtime and insulin coverage per protocol. 9. New onset atrial fibrillation with rapid ventricular rate: Status post 1 dose of I.V. diltiazem with subsequent hypotension therefore patient has been given I.V. amiodarone times 1. Continue on Eliquis for anticoagulation renally dosed at 2.5 twice a day. 10. Morbid obesity - BMI of 44: Complicating care.
--- NOTE | 2021-07-29 18:02 | REP ---
INDICATION: sob. COMPARISON: 07/28/2021 at 11:27 p.m. TECHNIQUE: Portable FINDINGS: The technique utilized in obtaining the radiograph has magnified the cardiac silhouette and accentuated the interstitial markings. There is cardiomegaly accentuated by technique status quo. The minimal left pleural effusion is unchanged. There are no new abnormal patchy parenchymal opacities or pleural effusions. There is no change in the central venous catheter tip which is seen in the superior vena cava. There is no change in the osseous structures. IMPRESSION: No significant change from the prior exam with findings as described above. <Electronically signed by Efren Graham > 07/29/21 [id number]
[2021-07-29] MEDS ORDERED: SODIUM CHLORIDE 0.9% INJ 10 ML SYR IV PRN (19:30)
--- NOTE | 2021-07-29 20:13 | CR ---
NEPHROLOGY CONSULTATION DATE: 07/29/2021 REQUESTING PHYSICIAN: Ayanna Byrne M.D. CONSULTING PHYSICIAN: Dave Carbajal M.D. REASON FOR CONSULTATION: Acute renal failure. HISTORY OF PRESENT ILLNESS: Miss Pressley is a 61-year-old female with morbid obesity, multiple chronic medical problems including chronic kidney disease, hypertension, congestive heart failure, diabetes and obstructive sleep apnea. She presented to the Emergency Room last evening with right leg pain and swelling. She was admitted with possible cellulitis in the right lower extremity. She has worsening hypotension and developed atrial fibrillation in the Emergency Room. She already has acute renal failure with BUN of 116 on admission and creatinine 3.9. Her WBC count was 14.9. A nephrology consultation was requested today and the patient is seen in the Emergency Room. PAST MEDICAL AND SURGICAL HISTORY: The patient's past medical and surgical history is significant for: 1. Longstanding type 2 diabetes. 2. Morbid obesity. 3. Hypertension. 4. Diastolic congestive heart failure. 5. History of chronic kidney disease. 6. History of dyslipidemia. 7. History of obstructive sleep apnea. 8. History of psoriasis. 9. History of gastroesophageal reflux disease. 10. Depression. PAST SURGICAL HISTORY: The patient's past surgical history is significant for: 1. Cholecystectomy. 2. Tonsillectomy. 3. Hernia repair. HOME MEDICATIONS: Her home medications include: 1. Aspirin 81 mg daily. 2. Atorvastatin 40 mg daily. 3. Furosemide 80 mg daily. 4. Tradjenta 5 mg daily. 5. Spironolactone 50 mg daily. ALLERGIES: She has multiple allergies includin. Amoxicillin. 2. Clindamycin. 3. Lansoprazole. 4. Esomeprazole. 5. Mitral Prednisone. 6. Metronidazole. FAMILY HISTORY: The patient's family history is negative for end-stage renal disease. Father had coronary artery disease with M.I. and mother also had coronary artery disease with a heart attack. PERSONAL AND SOCIAL HISTORY: The patient is a smoker. She denies any alcohol or drug use. REVIEW OF SYSTEMS: Constitutional: The patient is receiving a fluid bolus at the time of my arrival to the Emergency Room due to hypotension. She denies any fevers or chills. She is complaining of pain in her right leg. She reports that she did not sleep for the last one week. Ears, Nose and Throat: Unremarkable. Cardiovascular System: Significant chronic lower extremity edema and shortness of breath. Respiratory System: Negative for cough or hemoptysis. Gastrointestinal System: Negative for vomiting or abdominal pain. She denies any diarrhea. GI System: Significant for no urine output. Her renal ultrasound was significant for chronic medical renal disease and no hydronephrosis. Urinary bladder was empty. Musculoskeletal System: Significant for morbid obesity and bilateral lower extremity edema. She has redness on her right leg. Endocrine System: Significant for diabetes and severe secondary hyperparathyroidism. Neurological System: Negative for seizures or strokes. Hematological System: Negative for any terminal block assembler anticoagulation. Skin: Significant for cellulitis on the right lower extremity. Psychosocial System: Significant for depression. PHYSICAL EXAMINATION: GENERAL APPEARANCE: Morbidly obese lady laying in the stretcher with head end elevated. VITAL SIGNS: Temperature is 98.8 degrees Fahrenheit, heart rate about 112 per minute and respiratory rate 18 per minute. Blood pressure was as low as 73/52 mm of mercury and nursing staff reports that now with the fluid bolus, it has improved to 110/60 mm of mercury. HEENT: Her head is atraumatic. NECK: Supple and JVD is moderately elevated. LUNGS: Bilateral basilar rales. HEART: Sounds are tachycardic and irregular. ABDOMEN: Obese and nontender and bowel sounds are present. EXTREMITIES: Without any cyanosis or clubbing. She has erythema on her right leg and significant chronic edema in both lower extremities. NEUROLOGICAL: Grossly intact. LABORATORY DATA: Last evening she tested negative for COVID, hepatitis and MRSA. This morning random Vancomycin level is 21.4. Sodium is 134, potassium 4.6, CO2 24, BUN 121 and creatinine 3.88. Glucose 95 and calcium 8.6. Troponin 0.03, 0.06 and 0.08 respectively. BNP level is 31,258. Her PTH level is 1,273. WBC count is 15.6, hemoglobin 11.7 and hematocrit 35.7. Platelet count 277. PROBLEMS: 1. Acute renal failure superimposed on chronic kidney disease - The patient is known to have chronic kidney disease, however probably she has not been following with Nephrology. On admission her BUN was 116 and creatinine 3.94. She has no urine output since admission. She is likely to require renal replacement therapy. At present she is hemodynamically unstable with rapid atrial fibrillation and hypotension. This makes any chance of renal recovery less likely. 2. Septic shock - The patient has worsening hypotension and no urine output. Even before she developed atrial fibrillation she had no urine output and blood pressure has been soft. She has leukocytosis and cellulitis on her right leg. She has been given Vancomycin last evening, and she is also on Meropenem. 3. Atrial fibrillation with rapid ventricular rate the patient did not do very well with Diltiazem and dropped her blood pressure down to the 70's. I would recommend to use Amiodarone as the patient is hemodynamically unstable and less likely to tolerate a calcium channel seun. Anticoagulation has already been started with Eliquis 2.5 mg twice daily. 4. Congestive heart failure she has significant decompensated volume status, however at present she is hemodynamically unstable and not suitable for diuresis. We will have to wait until she is hemodynamically stable and then we can do a trial of diuretic be given. She is more likely to require renal replacement therapy with CRRT or hemodialysis. Thank you for involving me in the care of Miss Pressley. I will follow her along with you.
[2021-07-29] MEDS ORDERED: NS 500 ML IV ONE (20:30)
--- NOTE | 2021-07-29 20:43 | IPNPDOC ---
Text Note Date of Service The patient was seen on 07/29/21. NOTE TIME OF SERVICE 835PM I was informed by the patient's RN Milton that the patient was tachycardic, lethargic, hypoglycemic and her BP was low. The patient elected to transition to DNR/DNI and continue with full medical management. She verbalized understanding the implications of making this decision including the fact that she would pass away if we do not perform CPR and or do not intubate her. The patient felt to weak to sign the form and agreed to have us check the verbal consent box. We ordered Amiodarone for the RVR, and ordered Vasopresin in case she needs to be started on another pressor. She is receiving D50 pushes and frequent FSBS. VS,Fishbone, I+O VS, Fishbone, I+O Laboratory Tests 07/29/21 04:20 07/29/21 07:05 Vital Signs Date Time Temp Pulse Resp B/P (MAP) Pulse Ox O2 Delivery O2 Flow Rate FiO2 07/29/21 20:16 110 20 93 Nasal Cannula 2.0 07/29/21 20:01 141/60 (87) 07/29/21 17:55 98.8 IVORY BERRIOS MD Jul 29, 2021 20:43
[2021-07-29] MEDS ORDERED: VASOPRESSIN INJ 20 UNITS in NS 500 ML IV SCH (21:00)
[2021-07-29] MEDS ORDERED: VASOPRESSIN INJ 20 UNITS in NS 499 ML IV SCH ×5 (21:00→22:00)
[2021-07-29] MEDS: AMIODARONE HCL 360 MG in IV 1 EA IV SCH (21:57)
[2021-07-29] MEDS ORDERED: SODIUM CHLORIDE 0.9% INJ 10 ML SYR IV SCH (22:00)
[2021-07-30] MEDS: HumaLOG INSULIN (NovoLOG) PER UNIT SC SCH (01:06)
[2021-07-30 01:29] VITALS: BP 97/70
[2021-07-30] MEDS: MEROPENEM INJ 1 GM in IV 1 EA IV SCH (01:30)
[2021-07-30] MEDS ORDERED: ATROPINE SULF 0.4 MG/ML 1ML VIAL (J0461) IV STA ×2 (01:44→01:54)
--- NOTE | 2021-07-30 01:44 | IPNPDOC ---
Text Note Date of Service The patient was seen on 07/30/21. NOTE TIME OF SERVICE 135AM Per d/w RN Milton the patient has become unresponsive. When we started Vasopressin her SBP transiently increased to the 180s. After we get an arterial line we will check a CT of the brain and repeat all blood work. I have attempted to call her Poli multiple times. LATE ENTRY 221AM Despite starting levophed, vasopressin, giving pushes of atropine and placing subcutaneous pacers the patient's MAP dropped to the teens, she stopped breathing and went into asystole. Her time of was 208AM; shortly thereafter her called us back and was informed that the patient . We were unable to obtain repeat blood work and obtain a CT of the head. I suspect that her cause of is septic shock and hypoglycemia. VS,Fishbone, I+O VS, Fishbone, I+O Laboratory Tests 07/29/21 04:20 07/29/21 07:05 Vital Signs Date Time Temp Pulse Resp B/P (MAP) Pulse Ox O2 Delivery O2 Flow Rate FiO2 07/30/21 00:45 158/105 (122) 07/30/21 00:31 98 28 94 Nasal Cannula 4.0 07/29/21 17:55 98.8 I&O- Last 24 Hours up to 6 AM 07/30/21 06:00 Intake Total 831 ml Balance 831 ml IVORY BERRIOS MD Jul 30, 2021 01:44
[2021-07-30] MEDS ORDERED: NS 500 ML IV ONE (01:55)
[2021-07-30] MEDS ORDERED: EPINEPHrine HCL INJ 1 MG in D5W 240 ML IV SCH (02:00)
--- NOTE | 2021-07-30 02:11 | ED PDOC ---
Post-Departure Follow-Up PATIENT WAS AN ED ICU [facility], ASKED BY DR BERRIOS TO PLACE AN EMERGENT ARTERIAL L INE DUE TO EXTREME HYPOTENSION, DIFFICULTY OBTAINING BLOOD PRESSURES, AND BEING UNRESPONSIVE. A RIGHT FEMORAL ARTERIAL LINE WAS PLACED UNDER ULTRASOUND GUIDANCE USING STERILE CONDITIONS VIA SELDINGER TECHNIQUE . LINE WAS SECURED IN PLACE WITH 3-0 ETH AND GOOD ARTERIAL WAVE FORM NOTED. APPROXIMATELY 10CC BLOOD LOSS DURING PROCEDURE, NO COMPLICATIONS. AYAZ RIGGS, DO Jul 30, 2021 02:10
[2021-07-30] MEDS ORDERED: AMIODARONE HCL 360 MG in IV 1 EA IV SCH (02:30)
[2021-07-30] MEDS: AMIODARONE HCL 360 MG in IV 1 EA IV SCH (02:30)
--- NOTE | 2021-07-30 07:49 | ECHO ---
ECHOCARDIOGRAM DATE OF PROCEDURE: 07/29/2021 Age: 61 Gender: Female Height: 64 inches Weight: 255 pounds Body Surface Area: 2.17 sq m Inpatient - currently in the emergency room REFERRING PHYSICIAN: Breanna Mg MD INDICATION: Atrial fibrillation. Abnormal EKG. MEASUREMENTS: 2D Measurements: RV - 4.8 cm LV - 4.0 cm Septum 1.1 cm Posterior wall 1.1 cm Aortic Root 3.4 cm LA - 4.0 cm LVEF 45% Doppler Measurements: AV - 1.14 m/s LVOT - 0.47 m/s LVOT diameter 2.0 cm MV-E 88 Early mitral deceleration time 148 msec E prime medial 6.5, A prime medial 8.5 Average E/E prime ratio 11.7/PCWP 16.4 mmHg PV 0.5 m/s Pulmonary artery acceleration time 67 msec RVSP 67 mmHg IVC - 2.6 cm COMMENTS: Underlying atrial fibrillation with rapid ventricular response averaging 120-130 beats per minute. Right bundle branch block. Somewhat technically challenging study related to the patient's body habitus but diagnostically useful information is still obtained. Normal left ventricular size with left ventricular wall thickness upper limits of normal. Obvious flattening of the septum related to right ventricular pressure overload with at least mild to moderate impairment of global left ventricular systolic function that may be a reflection of the excessively rapid ventricular response at this time. Left atrial size upper limits of normal to slightly dilated with currently normal estimated mean left atrial pressure. Moderately dilated right heart chambers with right ventricular hypokinesis; again, partially related to the excessively rapid ventricular response. Doppler evidence of severe pulmonary hypertension. Dilated pulmonary trunk measuring 3.6 cm (normal 2.5 cm or less). Normal aortic root diameter. Normal-appearing aortic valve with adequate cusp separation but premature cusp closure; again, reflecting the excessively rapid heart rate. Mild degenerative changes of the mitral valvular apparatus with adequate cusp separation and no posterior systolic buckling. Trace to very mild insufficiency. Normal-appearing tricuspid valve with severe tricuspid insufficiency. No apparent intracardiac mass. Small posterior pericardial effusion measuring 4 mm.
--- NOTE | 2021-07-30 16:12 | DS.PDOC ---
Discharge Summary General Date of Admission Jul 28, 2021 at 19:41 Date of Discharge 07/30/21 Discharge Summary CODE STATUS: DO NOT RESUSCITATE / DO NOT INTUBATE PROCEDURES PERFORMED DURING STAY: Right subclavian central line placement 07/28/2021 Right femoral arterial line placement 07/30/2021 DISCHARGE DIAGNOSES: shock requiring intravenous Levophed drip and intravenous vasopressin Right lower extremity cellulitis Acute renal failure superimposed on chronic kidney disease stage V New onset atrial fibrillation with rapid ventricular response, complicated by hypotension requiring intravenous amiodarone Acute on chronic combined systolic and diastolic congestive heart failure exacerbation, ejection fraction of 45% Cor pulmonale with right-sided congestive heart failure exacerbation Severe pulmonary hypertension with right ventricular systolic pressure 67 mmHg with dilated pulmonary trunk measuring 3.6 cm Severe tricuspid insufficiency Acute hypoxic respiratory failure secondary to congestive heart failure exacerbation Hepatic congestion from right-sided congestive heart failure/congestive hepatopathy Hypoglycemia Acute metabolic encephalopathy Chronic right bundle branch block Pickwickian syndrome Morbid obesity BMI 44 CHIEF COMPLAINT: Right leg pain, swelling for 1 week HISTORY OF PRESENT ILLNESS: 61-year-old female with past medical history significant for combined systolic and diastolic congestive heart failure with ejection fraction of 45%, severe pulmonary hypertension with right ventricular systolic pressure of 67 mmHg, severe tricuspid regurgitation, cor pulmonale, pickwickian syndrome with BMI of 44, chronic kidney disease stage III, morbid obesity, obstructive sleep apnea presented to the emergency room with 1 week history of bilateral lower extremity edema and worsening pain in the right leg along with some erythema, unable to ambulate. Patient denied any fever or chills,, but admits to weakness, decreased urination, decreased appetite, with some dyspnea on exertion and occasional cough. HOSPITAL COURSE: In the emergency room patient was found to have acute on chronic renal failure with a creatinine of 3.9 and BUN of 116, from baseline of chronic kidney disease stage III. She was started on intravenous fluids with strict I's and O's Daily weights and Moon catheter placement. Due to worsening bilateral lower extremity edema, Ultrasound of the lower extremities was ordered, which was negative for DVT. She was noted to have right lower extremity cellulitis and was started on intravenous vancomycin and intravenous meropenem. white blood cell count was 14.9, and blood cultures were obtained. Patient had poor venous access and a central line was placed by general surgery in the right subclavian with no pneumothorax on repeat chest x-ray. Chest x-ray was noted to have a sma ll left-sided pleural effusion, Patient was found to have new onset atrial fibrillation rapid ventricular response, with ventricular rate of 157-170 at the bedside with blood pressure of 140 to 150 mmHg systolic. She was given metoprolol 5 mg intravenously and metoprolol 50 mg twice daily ventricular rate was 130 to 170 bpm, and started on intravenous heparin drip for CVA prophylaxis. Echocardiogram was ordered. Patient was admitted to the ICU under telemetry monitoring. While the patient was on intravenous heparin drip, and despite metoprolol 50 mg twice daily, patient's heart rate remained uncontrolled at 137 bpm to 140 bpm, with blood pressure of 163/59. Patient's metoprolol was discontinued. patient was given Cardizem 20 mg intravenous bolus with 5 mg/h intravenous drip for better rate control. After the Cardizem bolus, patient's blood pressure dropped to 73/47, at which point patient was given intravenous amiodarone 150 mg stat, and 1 L normal saline intravenous bolus. Patient had increasing respiratory distress and was noted to be in acute decompensated systolic and diastolic congestive heart failure with hepatic congestion with elevated bilirubin and liver function tests with transaminitis. Ultrasound of the abdomen was negative. Nephrology was consulted to help in managing patient is decompensated heart failure in the setting of septic shock with acute on chronic renal failure now stage V, to evaluate for emergent dialysis. Despite Moon catheter placement patient had minimal urine output. Due to worsening respiratory distress oxygen was increased to keep saturations above 90%, and intravenous fluids were discontinued. A second dose of intravenous amiodarone was given due to persistent heart rate of 110-120. Patient was started on intravenous Levophed drip since she did not tolerate IV fluids for hypotension. Patient was being treated for the following issues: shock requiring IV vasopressors Levophed to keep mean arterial pressure above 70, intravenous vancomycin and intravenous meropenem both were renally dosed by pharmacy, failed on IV fluid resuscitation due to worsening respiratory distress and acute on chronic systolic and diastolic congestive heart failure exacerbation. Coronavirus 19 was negative. Blood cultures were sent. Ultr asound of the right lower extremity was negative for DVT patient was being treated for right lower extremity cellulitis due to persistent hypotension patient was also ordered IV vasopressin. Echocardiogram showed ejection fraction of 45% without wall motion abnormalities, and no pericardial effusion. She has known history of cor pulmonale with severe tricuspid regurgitation, jimmy re pulmonary hypertension, with transaminitis due to congestive hepatopathy on admission. Right lower extremity cellulitis with bilateral lower extremity edema negative for DVT on ultrasound. Was empirically started on IV vancomycin and intravenous meropenem both of which were renally dosed. Central line was placed via the right subclavian with no pneumothorax on repeat chest x-ray. Acute on chronic renal failure now stage V evaluated by pin puller for CRRT or hemodialysis need due to worsening respiratory distress, oliguria in the setting of shock, and decompensated acute on chronic combined systolic and diastolic congestive heart failure. Moon catheter was placed with minimal urine output. Ultrasound of the kidney was negative for hydronephrosis or obstructive uropathy. Patient was initially resuscitated with intravenous fluids but was discontinued due to acute on chronic congestive heart failure exacerbation with respiratory failure requiring supplemental oxygen. Due to hemodynamic instability with persistent hypotension requiring Levophed drip in A. fib with RVR, renal recovery would be difficult even with CRRT and hemodialysis per pin puller Acute on chronic combined systolic and diastolic congestive heart failure/cor pulmonale with congestive hepatopathy with elevated liver enzymes/right-sided congestive heart failure/severe pulmonary hypertension with right ventricular systolic pressure of 67 mmHg. /Severe tricuspid regurgitation. Patient's acute decompensated state was in the setting of tachycardia mediated CHF exacerbation due to new onset atrial fibrillation with rapid ventricle rate of 140 to 170 bpm, septic shock from lower extremity cellulitis, complicated by IV fluid resuscitation for septic shock causing hypoxia. Supplemental oxygen was given. Nephrology was consulted to evaluate for emergent dialysis since the patient was oliguric and fluid overloaded. New onset atrial fibrillation with rapid ventricular rate initially treated with intravenous metoprolol and metoprolol 50 mg twice daily with adequate blood pressure of 130 to 150 mmHg systolic , as well as intravenous heparin drip for CVA prophylaxis. Due to worsening respiratory distress the excess volume from the heparin drip has been discontinued and patient was placed on Eliquis renally dosed 2.5 mg twice daily. Due to persistent A. fib with RVR, patient was started on Cardizem drip with 20 mg of IV bolus given but complicated by hypotension with systolic pressure dropping from 163 mmHg systolic to 73/47 at the bedside. At this point IV fluids could not be given due to worsening respiratory distress from CHF exacerbation. Therefore patient was given intravenous amiodarone x2 doses for better rate control which improved the rate from 137-90 at the bedside on telemetry. Once the patient was placed on Levophed drip, metoprolol was given for A. fib with RVR at 8:35 PM on 07/21/2021. Despite Levophed drip patient developed hypotension, and was given intravenous amiodarone, with intravenous vasopressin ordered to increase patient's blood pressure. Hypoglycemia in the setting of septic shock from right lower extremity cellulitis: Treated with hypoglycemic protocol with multiple doses of D50 intravenously. Unable to continue on IV fluids due to hypoxic respiratory failure from decompensated combined systolic and diastolic heart failure exacerbation. Underlying infection was treated with IV Vanco and IV meropenem both were renally dosed. At 8:35 PM on 07/29/2021 patient was found to be much more tachycardic lethargic and hypoglycemic with persistent hypotension despite intravenous Levophed drip IV antibiotics and D50 IV times multiple doses for hypoglycemia. Vasopressin was ordered as well as IV amiodarone. Patient elected to transition to a DO NOT RESUSCITATE DO NOT INTUBATE but to continue with full medical management. Verbal consent was signed at the bedside witnessed by ER nurse. ER physician was consulted to place an arterial line due to persistent hypotension. A right femoral arterial line was placed under ultrasound guidance using sterile conditions. At 8:30 PM patient's heart rate increased to 136 bpm irregular with A. fib and was given intravenous amiodarone blood pressure then dropped to systolic pressure of 97 mmHg. Patient was given normal saline bolus at 8:30 PM with subsequent increase of blood pressure to 110 and was maximized on Levophed drip and vasopressin. Patient became bradycardic with heart rate of 45.1:44 AM at which point transcutaneous pacer as well as intravenous atropine was given. Patient became unresponsive at that time and according to patient's prior wishes of DO NOT INTUBATE DO NOT RESUSCITATE, patient was not resuscitated and at 2:08 AM. Laboratory data, imaging studies, microbiology, echocardiogram: See the chart Time spent On hospital discharge: 30 minutes Vital Signs/I&Os Vital Signs Date Time Temp Pulse Resp B/P (MAP) Pulse Ox O2 Delivery O2 Flow Rate FiO2 07/30/21 01:48 45 Non-Rebreather 15.0 07/30/21 01:30 26 96 07/30/21 01:29 97/70 (79) 07/29/21 17:55 98.8 I&O- Last 24 Hours up to 6 AM 07/30/21 06:00 Intake Total 1281 ml Balance 1281 ml Laboratory Data Labs 24H Laboratory Tests 2 07/29/21 14:40: Troponin I 0.08# 07/29/21 16:50: Bedside Glucose (Misc Panel) 22*L 07/29/21 16:56: Bedside Glucose (Misc Panel) 11*L 07/29/21 17:06: Bedside Glucose (Misc Panel) 43L 07/29/21 17:19: Bedside Glucose (Misc Panel) 60L 07/29/21 18:12: Bedside Glucose (Misc Panel) 85 07/29/21 18:42: Bedside Glucose (Misc Panel) 81 07/29/21 20:21: Bedside Glucose (Misc Panel) 62L 07/29/21 20:37: Bedside Glucose (Misc Panel) 102 07/29/21 22:33: Bedside Glucose (Misc Panel) 99 07/29/21 23:05: Bedside Glucose (Misc Panel) 100 07/30/21 00:43: Bedside Glucose (Misc Panel) 93 07/30/21 01:25: Bedside Glucose (Misc Panel) 90 FSBS Laboratory Tests Test 07/29/21 16:50 07/29/21 16:56 07/29/21 17:06 07/29/21 17:19 Range/Units Bedside Glucose (Misc Panel) 22 11 43 60 80-115 MG/DL Test 07/29/21 18:12 07/29/21 18:42 07/29/21 20:21 07/29/21 20:37 Range/Units Bedside Glucose (Misc Panel) 85 81 62 102 80-115 MG/DL Test 07/29/21 22:33 07/29/21 23:05 07/30/21 00:43 07/30/21 01:25 Range/Units Bedside Glucose (Misc Panel) 99 100 93 90 80-115 MG/DL Microbiology Microbiology 07/28/21 Blood Culture - Preliminary, Resulted No growth after 24 hours . All specim... 07/28/21 Blood Culture - Preliminary, Resulted No growth after 24 hours . All specim... Discharge Medications Scheduled Aspirin (Aspirin) 81 Mg Tab.chew, 81 MG PO DAILY, (Reported) Atorvastatin Calcium (Atorvastatin Calcium) 40 Mg Tablet, 40 MG PO QHS, (Reported) Furosemide (Furosemide) 80 Mg Tablet, 80 MG PO DAILY, (Reported) Linagliptin (Tradjenta) 5 Mg Tablet, 5 MG PO DAILY, (Reported) Spironolactone (Spironolactone) 50 Mg Tablet, 50 MG PO DAILY, (Reported) Allergies Coded Allergies: amoxicillin (Verified Allergy, Intermediate, rash/hives, 07/29/21) per patient clindamycin (Verified Allergy, Unknown, 07/28/21) esomeprazole (Verified Allergy, Unknown, 07/28/21) lansoprazole (Verified Allergy, Unknown, 07/28/21) methylprednisolone (Verified Allergy, Unknown, 07/28/21) metronidazole (Verified Allergy, Unknown, 07/28/21) OBDULIO RAMOS MD Jul 30, 2021 14:54
--- NOTE | 2021-07-31 17:08 | ECGEPIP ---
[facility] Test Date: 2021-07-29 Pat Name: IQRA GUY Department: Room: [place] [address] Gender: Female [employer]: : 1960 Requested By: IVORY BERRIOS Order Number: [id number] Reading MD: Shravan San Measurements Intervals [place] Rate: 131 P: [place]: QRS: 91 QRSD: 98 T: 78 QT: 270 QTc: 398 Interpretive Statements Atrial fibrillation with rapid ventricular response Low voltage QRS Incomplete right bundle branch block No prior tracing in the system Electronically Signed on 07-31-2021 17:07:54 EDT by Shravan San
== END 2021-07-30 02:08 | disposition expired | DRG 871 ==
LOC: M ED 13:58 → M ED INP 19:41
PROVIDERS: ADMIT Internal Medicine; ATTEND General Practice
PROC: 02HV33Z Insertion of Infusion Device into Superior Vena Cava, Percutaneous Approach (ICD-10-PCS; principal; 2021-07-28)
DX: A41.9 Sepsis, unspecified organism (principal); R65.21 Severe sepsis with septic shock; I50.43 Acute on chronic combined systolic (congestive) and diastolic (congestive) heart failure; I26.09 Other pulmonary embolism with acute cor pulmonale; J96.01 Acute respiratory failure with hypoxia; G93.41 Metabolic encephalopathy; I13.0 Hypertensive heart and chronic kidney disease with heart failure and stage 1 through stage 4 chronic kidney disease, or unspecified chronic kidney disease; L03.115 Cellulitis of right lower limb; N17.9 Acute kidney failure, unspecified; Z68.41 Body mass index [BMI] 40.0-44.9, adult; E66.2 Morbid (severe) obesity with alveolar hypoventilation; Z66 Do not resuscitate; N18.30 Chronic kidney disease, stage 3 unspecified; E11.22 Type 2 diabetes mellitus with diabetic chronic kidney disease; L40.0 Psoriasis vulgaris; K21.9 Gastro-esophageal reflux disease without esophagitis; F32.A Depression, unspecified; Z90.49 Acquired absence of other specified parts of digestive tract; F17.210 Nicotine dependence, cigarettes, uncomplicated; R74.01 Elevation of levels of liver transaminase levels; E78.5 Hyperlipidemia, unspecified; Z88.1 Allergy status to other antibiotic agents; Z88.8 Allergy status to other drugs, medicaments and biological substances; Z79.82 Long term (current) use of aspirin; Z79.899 Other long term (current) drug therapy; I48.91 Unspecified atrial fibrillation; E11.649 Type 2 diabetes mellitus with hypoglycemia without coma; I36.1 Nonrheumatic tricuspid (valve) insufficiency; Z20.822 Contact with and (suspected) exposure to COVID-19; I27.29 Other secondary pulmonary hypertension; K76.0 Fatty (change of) liver, not elsewhere classified